=== PATIENT | female | born 1960 | race Caucasian/White ===

== ENCOUNTER → 2017-01-23 | Outpatient (CLI) | payer OTHER ==
--- NOTE | 2017-01-24 09:42 | KCIC ---
Bilateral digital diagnostic mammograms with CAD: HISTORY Bilateral breast lumps on clinical exam. COMPARISON Comparison is made to previous examinations dated 10/05/2014. FINDINGS Breast density category C. The skin and nipples show no abnormalities. No abnormal lymph nodes are seen in the axilla. The breast parenchyma shows heterogeneous density. There are no dominant masses, suspicious calcifications or architectural distortions. There continue be calcifications present bilaterally which are unchanged. Biopsy clip is present on right. IMPRESSION No evidence of malignancy. Ultrasound to follow. This study was interpreted with the benefit of Computerized Aided Detection (CAD). Mammography is not 100% sensitive in detecting breast cancer. Therefore, a self breast exam and a clinical breast exam are very important. A negative mammogram does not negate a clinically suspicious finding and should not result in a delay in biopsying a clinically suspicious abnormality. BI-RADS category 0: Incomplete. Ultrasound to follow. Bilateral breast ultrasound: Comparison is made to previous study dated 10/21/2014. Ultrasound examination was performed bilaterally with attention to the lateral breast. The right breast continues to show a hypoechoic lesion in the 11 o'clock position 6 centimeters from the nipple measuring 6.6 millimeters in greatest dimension which is well-circumscribed and lies in parallel orientation. This is unchanged and consistent with a small fibroadenoma. In the 10:30 position 4.5 centimeters from the nipple, there is an additional 7.9 millimeter lesion which may represents some and additional small fibroadenoma. This is however new since previous exam and close followup is recommended. No other focal lesions are seen in the right breast. No abnormal appearing lymph nodes are seen in the axilla. The left breast shows no discrete cystic or solid nodules. No abnormal appearing lymph nodes are seen in the left axilla. Impression: No significant change in the small nodule at the 11 o'clock position of the right breast. New 7.9 millimeter nodule in the 10:30 position of the right breast which may represent an additional small fibroadenoma. This has a benign appearance but close followup is recommended with re-evaluation with ultrasound in 3 months. No focal abnormalities seen in the left breast. BI-RADS category 3: Probably benign. This patient's information has been entered into a reminder system for the patient to be notified with the results of this examination and a target date for her next mammograms. This patient's information has been entered into a reminder system for the patient to be notified with the results of this examination and a target date for her next mammograms. Electronically signed by: Juana Desir MD (January 24, 2017 08:43:03)
== END | disposition home or self-care (01) ==
LOC: KCIC MAMMO 08:14
PROVIDERS: ATTEND Family Medicine
DX: N63 Unspecified lump in breast (principal)
CPT/HCPCS: 76641; G0204; 77066

== ENCOUNTER → 2018-06-02 | Outpatient (CLI) | payer OTHER ==
--- NOTE | 2018-06-02 11:30 | RAD ---
DATE: June 02, 2018 EXAM: MAMMO JES FRANCISCO IGLESIAS, BREAST RIGHT HISTORY: Follow-up of right breast nodules seen sonographically only. COMPARISON: January 23, 2017 mammogram and January 23, 2017 and July 17, 2017 sonograms of the right breast. BILATERAL DIAGNOSTIC 3-D MAMMOGRAPHY 2-D digital mammographic views of both breasts were performed in the CC and MLO projections. 3-D digital tomosynthesis images of both breasts were performed in the CC and MLO projections and reviewed on a computer workstation. This study was interpreted with the benefit of Computerized Aided Detection (CAD). FINDINGS: Breast Density: HETERO The breast parenchyma is heterogenously dense, which could reduce sensitivity of mammography. Breast parenchyma level C.. There are no dominant suspicious masses, suspicious microcalcifications or evidence of architectural distortion. RIGHT BREAST SONOGRAPHY: At the 10:30 position, only one nodule is seen today. There is a small hypoechoic nodule 5 cm from the nipple measuring 3 mm in greatest dimension and it is unchanged. The other nodule seen in July 2017 but not January 2017 is not seen today. At the 11:00 position 5 cm from the nipple, a 4 mm hypoechoic nodule is seen which is stable. These nodules most likely are benign and therefore recommend a follow-up sonogram of the right breast in one year. IMPRESSION: No mammographic indicators for malignancy. Recommend screening mammography in one year. No change in size of right breast nodules seen sonographically. Recommend right breast sonogram in one at the time of the screening mammogram. If the patient develops a palpable abnormality in the interim, certainly earlier evaluation could be performed. BI-RADS CATEGORY: 3 PROBABLE BENIGN-SHORT TERM F/U RECOMMENDED FOLLOW-UP: 12M 12 MONTH FOLLOW-UP PQRS compliance statement: Patient information was entered into a reminder system with a target due date June 03, 2019 for the next mammogram. Mammography is a sensitive method for finding small breast cancers, but it does not detect them all and is not a substitute for careful clinical examination. A negative mammogram does not negate a clinically suspicious finding and should not result in delay in biopsying a clinically suspicious abnormality. "Our facility is accredited by the [employer] Mammography Program." The patient's breast density may affect the ability of mammography to detect breast cancer. There are 4 categories of breast density, A, B, C and D. Breast density A means that most of the breast tissue is replaced with adipose tissue and therefore is not dense. Breast density B means that the breast tissue is mildly dense and scattered. Breast density C means that the breast tissue is heterogeneously dense. Breast density D means that the breast tissue is very dense. Breast densities especially C and D may decrease the sensitivity of mammography to detect breast cancer. Therefore, the patient may benefit from 3-D breast mammography (3D breast tomography) as a part of their screening mammogram. Insurance may or may not pay for this additional imaging. The patient's breast density based on today's mammogram is category C.
== END | disposition home or self-care (01) ==
LOC: MAMMO 09:51
PROVIDERS: ATTEND Family Medicine
DX: R92.2 Inconclusive mammogram (principal)
CPT/HCPCS: 76641; 77066; G0279; 77062